=== PATIENT | male | born 1940 | race Two or more races ===

== ENCOUNTER 2017-12-03 09:15 | Emergency (ER) | payer MEDICARE, MEDICAID ==
[~2017-12-03] VITALS: Ht 172.7 cm; Wt 81.6 kg
[~2017-12-03 09:15] MED LIST: DIOVAN320 MG ORAL; NORCO 5-325 TA1 EACH PO
[2017-12-03] MEDS ORDERED: Sodium Chloride 500ML 500 ML IV ONE (09:36)
[2017-12-03 09:43] VITALS: BP 162/69
[2017-12-03] MEDS ORDERED: Isovue-300 100ml vial INJ ONE (09:45)
[2017-12-03 10:20] LABS: APPEARANCE,URINE CLEAR; BILIRUBIN, URINE NEGATIVE (NEGATIVE); COLOR,URINE PALE YELLOW; GLUCOSE, URINE (UA) NEGATIVE (NEGATIVE); KETONES,URINE NEGATIVE (NEGATIVE); LEUKOCYTE ESTERASE ,URINE NEGATIVE (NEGATIVE); NITRITE,URINE NEGATIVE (NEGATIVE); PH,URINE 7 (4.5-8.0); PROTEIN,URINE NEGATIVE (NEGATIVE); UROBILINOGEN,URINE NORMAL MG/DL (0.0-1.0)
[2017-12-03 10:23] LABS: BASOPHILS % (AUTO) 1.7 % (0.0-2.0); EOSINOPHILS % (AUTO) 1.3 % (0.0-3.0); HEMATOCRIT 45.5 % (42.0-52.0); HEMOGLOBIN 15.4 G/DL (14.2-18.0); LYMPHOCYTES % (AUTO) 24.3 % (20.0-45.0); MEAN CORPUSCULAR VOLUME 84 FL (80-99); MONOCYTES % (AUTO) 8.1 % (1.0-10.0); NEUTROPHILS % (AUTO) 64.5 % (45.0-75.0); PLATELET COUNT 188 K/UL (150-450); RED BLOOD COUNT 5.44 M/UL (4.70-6.10); RED CELL DISTRIBUTION WIDTH 12.2 % (11.6-14.8); WHITE BLOOD COUNT 6.5 K/UL (4.8-10.8)
[2017-12-03] MEDS ORDERED: ASPIR-LOW81 MG ORAL (10:26)
[2017-12-03 10:29] LABS: ANION GAP 12 mmol/L (5-15); BLOOD UREA NITROGEN 19 mg/dL (7-18); CALCIUM 9.8 MG/DL (8.5-10.1); CARBON DIOXIDE 25 MMOL/L (21-32); CHLORIDE 100 MMOL/L (98-107); CREATININE 1.2 MG/DL (0.55-1.30); POTASSIUM 4.1 MMOL/L (3.5-5.1); SODIUM 137 MMOL/L (136-145)
[2017-12-03 10:33] LABS: ALANINE AMINOTRANSFERASE 38 U/L (12-78); ALBUMIN 4.2 G/DL (3.4-5.0); ALBUMIN/GLOBULIN RATIO 1.1 (1.0-2.7); ALKALINE PHOSPHATASE 96 U/L (46-116); ASPARTATE AMINO TRANSFERASE 22 U/L (15-37); BILIRUBIN,TOTAL 0.5 MG/DL (0.2-1.0)
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
[2017-12-03] MEDS ORDERED: ROBAXIN-750750 MG PO (12:24)
[2017-12-03] MEDS ORDERED: TYLENOL EXTRA500 MG ORAL (12:24)
[2017-12-03 12:27] VITALS: BP 154/89
== END 2017-12-03 12:34 | disposition home or self-care (01) ==
LOC: EMR 09:37
DX: M54.5 Low back pain (principal); E11.9 Type 2 diabetes mellitus without complications; I10 Essential (primary) hypertension
CPT/HCPCS: 36415; 74177; 80053; 81003; 83690; 85025; 96374; 99284; Q9967

== ENCOUNTER 2019-08-11 10:00 | Emergency (ER) | payer MEDICARE, MEDICAID ==
[~2019-08-11] VITALS: Ht 172.7 cm; Wt 70.8 kg
[~2019-08-11 10:00] MED LIST changes: +ASPIR-LOW81 MG ORAL; +ROBAXIN-750750 MG PO; +TYLENOL EXTRA500 MG ORAL
--- NOTE | 2019-08-11 10:10 | NUR ---
ED Nurse Note: pt walked in to ER from home due to Rt lower leg gout pain 05/10. pt aao x4 and ambulatory but weak due to severe pain. calm and cooperative but gramicing for pain. skin dry but intact. BP systolic over 180mmHg at this moment. no pulmonary distress noted. pt denied chest pain. pt is in gown and on nurse monitoring.
[2019-08-11 10:14] VITALS: BP 162/78
[2019-08-11] MEDS ORDERED: Ketorolac 60mg Inj IM ONE (10:30)
--- NOTE | 2019-08-11 10:53 | Emergency Room Report ---
History of Present Illness General Chief Complaint: Lower Extremity Injury Source: Patient Present Illness HPI Patient presents with complaints of pain to the left knee reports that he has a history of gout and the pain feels very similar to that requesting IM injection Denies any fall or trauma denies any fevers or chills denies any pelvic pain Pain is worse with touch and walking Denies any previous surgery Symptoms started several days ago and patient has not attempted any oral medication yet Allergies: Coded Allergies: No Known Allergies (Unverified , 01/05/13) Patient History Past Medical History: see triage record Reviewed Nursing Documentation: PMH: Agreed; PSxH: Agreed Nursing Documentation-PMH Past Medical History: No History, Except For Hx Hypertension: Yes Hx Diabetes: Yes Review of Systems All Other Systems: negative except mentioned in HPI Physical Exam Vital Signs Date Time Temp Pulse Resp B/P (MAP) Pulse Ox O2 Delivery O2 Flow Rate FiO2 08/11/19 10:01 97.9 96 16 185/92 (123) 98 Room Air Sp02 EP Interpretation: reviewed, normal General Appearance: well appearing, no apparent distress Head: normocephalic, atraumatic Eyes: bilateral eye PERRL, bilateral eye EOMI ENT: hearing grossly normal, EOM grossly intact Neck: full range of motion, supple Respiratory: lungs clear Cardiovascular #1: regular rate, rhythm Gastrointestinal: non tender, soft Musculoskeletal: other - Degenerative changes noted to the left knee, no obvious effusion, area is not palpably warm no obvious fluctuance Neurologic: alert, oriented x3 Psychiatric: normal inspection Skin: no rash Lymphatic: no adenopathy Medical Decision Making Diagnostic Impression: Primary Impression: Arthralgia Additional Impression: Gout ER Course Multiple differentials including but not limited to septic joint, arthralgia, gout considered Patient reports that his symptoms are identical to his previous gout flares and requesting pain control X-ray and other work-up has not been performed emergently patient will have initial conservative outpatient trial Last Vital Signs Date Time Temp Pulse Resp B/P (MAP) Pulse Ox O2 Delivery O2 Flow Rate FiO2 08/11/19 10:14 97.9 93 16 162/78 97 Room Air Status: improved Disposition: HOME, SELF-CARE Condition: Improved Scripts Indomethacin (INDOMETHACIN) 50 Mg Capsule 50 MG PO DAILY for 7 Days, #15 CAP Prov: Kashif Huizar DO 1/11/20 Additional Instructions: Patient is provided with the discharge instructions notified to follow up with primary doctor in the next 2-3 days otherwise return to the er with any worsening symptoms. Please note that this report is being documented using iGuiders technology. This can lead to erroneous entry secondary to incorrect interpretation by the dictating instrument. Kashif Huizar DO Aug 11, 2019 10:53
[2019-08-11] MEDS ORDERED: INDOMETHACIN50 MG PO (11:16)
--- NOTE | 2019-08-11 11:25 | NUR ---
ED Nurse Note: Pt cleared by health care Provider for discharge. DC instructions/prescription was given and explained to pt and verbalized understanding of teachings. All medical deviecs such as ID band removed. Pt is AAO x4, ambulatory and left with all personal belongings.
== END 2019-08-11 11:30 | disposition home or self-care (01) ==
LOC: EMR 11:29
DX: M25.50 Pain in unspecified joint (principal); M10.9 Gout, unspecified; I10 Essential (primary) hypertension; E11.9 Type 2 diabetes mellitus without complications
CPT/HCPCS: 96372; 99283